=== PATIENT | male | born 1990 | race Caucasian/White ===

== ENCOUNTER 2022-12-01 09:24 | Emergency (ER) | payer BC ==
[~2022-12-01] VITALS: Ht 167.6 cm; Wt 70.3 kg
[2022-12-01] MEDS ORDERED: ONDANSETRON HCL INJ 2MG/ML 2ML 2 MG/ML VIAL IV STA (09:39)
[2022-12-01] MEDS ORDERED: LACTATED RINGER'S 1,000 ML IV ONE (09:45)
[2022-12-01] MEDS ORDERED: LACTATED RINGER'S 1,000 ML ONE (09:53)
[2022-12-01] MEDS ORDERED: KETOROLAC TROMETHAMINE 30 MG/ML VIAL ONE (09:53)
[2022-12-01] MEDS ORDERED: ONDANSETRON HCL INJ 2MG/ML 2ML 2 MG/ML VIAL ONE (09:53)
[2022-12-01] MEDS ORDERED: FAMOTIDINE 20 MG/2 ML VIAL IV ONE (09:53)
[2022-12-01] MEDS ORDERED: METOCLOPRAMIDE HCL 10 MG/2ML VIAL IV ONE (11:00)
[2022-12-01] MEDS ORDERED: DIPHENHYDRAMINE HCL INJ 50 MG/ML VIAL IV PRN (11:00)
[2022-12-01] MEDS ORDERED: DIPHENHYDRAMINE HCL INJ 50 MG/ML VIAL ONE (11:12)
[2022-12-01] MEDS ORDERED: METOCLOPRAMIDE HCL 10 MG/2ML VIAL ONE (11:12)
[2022-12-01] MEDS ORDERED: POTASSIUM CHLORIDE 20 MEQ TAB CR PO STA (12:04)
[2022-12-01] MEDS ORDERED: SODIUM CHLORIDE 0.9% 1000ML 1,000 ML IV ONE (12:15)
[2022-12-01] MEDS ORDERED: POTASSIUM CHLORIDE 20 MEQ TAB CR PO ONE (12:15)
[2022-12-01] MEDS ORDERED: SODIUM CHLORIDE 0.9% 1000ML 1,000 ML ONE (12:17)
[2022-12-01] MEDS ORDERED: ONDANSETRON ODT4 MG PO (12:53)
[2022-12-01] MEDS ORDERED: FAMOTIDINE 20 MG/2 ML VIAL IV SCH (17:00)
== END 2022-12-01 13:09 | disposition home or self-care (01) ==
LOC: FSED 09:35
DX: R10.13 Epigastric pain (principal); K21.9 Gastro-esophageal reflux disease without esophagitis; E86.0 Dehydration; R11.2 Nausea with vomiting, unspecified; R19.7 Diarrhea, unspecified
CPT/HCPCS: 74176; 80053; 80076; 85025; 96374; 96375; 96376; 99284; J1200; J1885; J2405; J2765; J7030; J7121